=== PATIENT | male | born 1945 | race Caucasian/White ===

== ENCOUNTER 2016-08-14 07:16 | Inpatient (IN) | payer OTHER ==
--- NOTE | 2016-07-06 11:22 | PAT Medication Instructions ---
Service Date Jul 06, 2016. Current Home Medication List Amlodipine (Norvasc), 10 MG PO HS Aspirin Enteric Coated (Ecotrin Or Generic *), 81 MG PO QAM B-Complex W/ Folic Acid (Super B Complex Maxi), 1 TAB PO QAM Cholecalciferol (Vitamin D3), 5,000 INTERUNIT PO QAM Cyanocobalamin (Vitamin B-12 Unkown Dose), Unknown Dose PO QAM Losartan Potassium (Cozaar), 100 MG PO QAM Oxycodone Hcl (Oxycontin (Ext Rel) *), 10 MG PO Q12 Sildenafil Citrate (Viagra), 50 MG PO PRN Medication Instructions For Your Scheduled Surgery - Hold the following medications the morning of surgery: Losartan Potassium (Cozaar), 100 MG PO QAM Sildenafil Citrate (Viagra), 50 MG PO PRN Cyanocobalamin (Vitamin B-12 Unkown Dose), Unknown Dose PO QAM Cholecalciferol (Vitamin D3), 5,000 INTERUNIT PO QAM B-Complex W/ Folic Acid (Super B Complex Maxi), 1 TAB PO QAM - Take the following medications the morning of surgery with a sip of water: Oxycodone Hcl (Oxycontin (Ext Rel) *), 10 MG PO Q12 (okay to take up to 4 hours prior to surgery if needed) Aspirin Enteric Coated (Ecotrin Or Generic *), 81 MG PO QAM (okay to continue per surgeon) - Take the following medications as scheduled the night before surgery: Amlodipine (Norvasc), 10 MG PO HS Sildenafil Citrate (Viagra), 50 MG PO PRN Oxycodone Hcl (Oxycontin (Ext Rel) *), 10 MG PO Q12 If you have any questions please call us at [phone] (Erinn Hayden PA-C) or [phone] or [phone]
--- NOTE | 2016-07-06 11:54 | DIAGNOSTIC IMAGING REPORT ---
TWO VIEW CHEST CLINICAL HISTORY: Preoperative examination. FINDINGS: PA and lateral chest radiographs are obtained. No prior studies are available for comparison at the time of dictation. The cardiomediastinal silhouette is unremarkable. There is mild elevation of the right hemidiaphragm. The lungs and pleural spaces are clear. There is no pneumothorax. The skeletal structures are osteopenic. Degenerative change is seen throughout the thoracic spine. IMPRESSION: No active disease in the chest. Electronically signed by: Colby Suarez M.D. 07/06/2016 11:52 AM
[2016-07-06 12:17] LABS: BASO % 0.4 %; BASO ABS # 0.03 K/uL (0-0.2); COMPLETE YES; EOS % 3.2 %; HEMATOCRIT 37.2 % (42-52); IG% 0.3 %; LYMPH % 20.5 %; LYMPH ABS # 1.55 K/uL (1.2-3.4); MEAN CELL VOLUME 89.6 fL (80-100); MEAN CORPUSCULAR HEMOGLOBIN 31.3 pg (25-34); MEAN CORPUSCULAR HGB CONC 34.9 g/dl (32-36); MEAN PLATELET VOLUME 10.3 fL (7.4-10.4); MONO % 8.3 %; NEUT % 67.3 %; PLATELET COUNT 179 K/uL (130-400); RED BLOOD COUNT 4.15 M/uL (4.7-6.1); WHITE BLOOD COUNT 7.55 K/uL (4.8-10.8)
[2016-07-06 12:27] LABS: PARTIAL THROMBOPLASTIN RATIO 1.2; PROTHROMBIN TIME (PATIENT) 10.5 SECONDS (9.0-12.0)
[2016-07-06 12:30] LABS: URINE APPEARANCE CLOUDY (CLEAR); URINE BILIRUBIN NEG (NEG); URINE COLOR DK YELLOW; URINE NITRITE NEG (NEG); URINE SPECIFIC GRAVITY 1.033 (1.000-1.030); UROBILINOGEN NEG (NEG)
[2016-07-06 12:41] LABS: MANUAL MICROSCOPIC REQUIRED? NO; REVIEW REQ? NO
[2016-07-06 13:10] LABS: ESTIMATED AVERAGE GLUCOSE 114 mg/dl; HA1C FLAG Normal (Normal)
[2016-07-06 17:45] LABS: BUN/CREATININE RATIO 15.4 (10-20); CREATININE 1.3 mg/dl (0.60-1.40)
[2016-07-06 17:56] LABS: CALCIUM 8.9 mg/dl (8.5-10.1)
--- NOTE | 2016-07-25 10:52 | History and Physical ---
History & Physical PROCEDURE: Right knee replacement. DATE OF SURGERY: 08/14/16 HISTORY OF PRESENT ILLNESS: Inocencio is a pleasant 71-year-old male who presents for preoperative evaluation prior to a right knee replacement. He states he is having pain in this knee for several years now, which has gradually worsened. It has not gotten to the point it is affecting his daily activities including walking, standing, going up and down steps. He has tried previous oral anti-inflammatories including ibuprofen and Aleve, he has had previous cortisone injection and also viscosupplementation without much relief. At this point in time he has failed conservative measures and after discussing further care would like to proceed with a right knee replacement. PAST MEDICAL HISTORY: 1. Hypertension. 2. Sleep apnea. ALLERGIES: No known drug allergies. CURRENT MEDICATIONS: 1. Losartan 100 mg daily. 2. Vitamin D3. 3. Aspirin 81 mg daily. 4. Amlodipine 10 mg daily. 5. B complex vitamin. PAST SURGICAL HISTORY: Previous shoulder arthroscopy. FAMILY HISTORY: Noncontributory. SOCIAL HISTORY: The patient consumes 5 alcoholic beverages per week. Denies a history of smoking or tobacco use. REVIEW OF SYSTEMS: Otherwise negative. Please see HPI for pertinent positives. PHYSICAL EXAMINATION: GENERAL: Kristine 71-year-old male in no acute distress, alert and oriented x3. He is 65 inches tall, weighs 186 pounds, BMI 31. VITAL SIGNS: Blood pressure is 122/66. HEAD, EYES, EARS, NOSE, AND THROAT: Normocephalic, atraumatic. CARDIAC: Regular rate and rhythm. No murmurs or gallops appreciated. Resting pulse 76 beats per minute. LUNGS: Clear to auscultation without rales or wheeze bilaterally. ABDOMEN: Soft, nontender. Bowel sounds present. EXTREMITIES: Attention to his right lower extremity he is neurovascularly intact. Calves are soft and nontender. DP pulse +2. He has a varus alignment. He does have positive crepitation with motion, range of motion is 0/5/115. His knee is ligamentously stable. Tenderness present diffusely over the knee, greatest over the medial compartment. IMAGING: Reviewed of the right knee show findings consistent with degenerative joint disease including joint space narrowing, subchondral sclerosis and osteophyte formation noted. He has mild varus alignment. IMPRESSION: 1. Right knee degenerative joint disease. 2. Hypertension. PLAN: Further care discussed with patient. At this point in time, has failed conservative measures and would like to proceed with a right knee replacement. Will place on aspirin 81 mg p.o. b.i.d. for a month postop. He otherwise has no other questions or concerns.
[~2016-08-14] VITALS: Ht 165.1 cm; Wt 83.9 kg
[2016-08-14] VITALS (9 sets, daily range): BP systolic 109–160; BP diastolic 54–77; PULSE 57–68; TEMP 36.4–36.9; O2SAT 94–99; Ht 165.1 cm; Wt 83.9 kg
--- NOTE | 2016-08-14 07:12 | History & Physical Bridge Note ---
H&P Re-Evaluation Bridge Note: I have examined the patient, reviewed the History & Physical and in the interval since the performance of the History & Physical I have noted the following changes of clinical significance: No changes noted
[~2016-08-14 07:16] MED LIST: ACETAMINOPHEN 500 MG TAB PO SCH; AMLO-114 PO; ASPEC81 PO; B-CO-25 PO; BUPIVACAINE 0.5 % 5 MG/1 ML PF 10ML VIAL ONE; CHOL20007 PO; CeleBREX 200 MG CAP PO SCH; DEXAMETHASONE 4 MG TAB PO SCH; GABAPENTIN 300 MG CAP PO SCH; LACTATED RINGER'S 1000ML IV SCH; LACTATED RINGER'S 500 ML IV SCH; LOSA1TAB38 PO; METOCLOPRAMIDE HCL 10 MG TAB PO SCH; VGR50 PO; VTMB12UNK PO
[2016-08-14] MEDS ORDERED: LIDOCAINE HCL 2% 2 ML VIAL (20MG/ML) ONE ×2 (07:40→10:36)
[2016-08-14] MEDS ORDERED: ONDANSETRON INJ 2 MG/ML 2 ML VIAL ONE ×2 (07:40→10:36)
[2016-08-14] MEDS ORDERED: PROPOFOL IV EMULSION 10 MG/ML 20 ML VIAL IV ONE ×2 (07:40→10:36)
[2016-08-14] MEDS ORDERED: DEXAMETHASONE SOD INJ 4 MG/ML VIAL ONE ×2 (07:40→10:36)
[2016-08-14] MEDS ORDERED: MIDAZOLAM HCL 1 MG/ML 2ML VIAL ONE ×4 (07:41→10:36)
[2016-08-14] MEDS ORDERED: FENTANYL CITRATE INJ 50 MCG/1 ML 2 ML VIAL ONE ×2 (07:41→10:36)
[2016-08-14] MEDS ORDERED: ONDANSETRON INJ 2 MG/ML 2 ML VIAL IV PRN ×2 (09:00→11:15)
[2016-08-14] MEDS ORDERED: ORTHO JOINT ANESTHETIC ONE (09:00)
[2016-08-14] MEDS ORDERED: ATROPINE SULFATE 0.1 MG/ML 5ML SYR IV PRN (09:00)
[2016-08-14] MEDS ORDERED: EpHEDrine SULFATE INJ 50 MG/ML AMP IV PRN (09:00)
[2016-08-14] MEDS ORDERED: FENTANYL CITRATE INJ 50 MCG/1 ML 2 ML VIAL IV PRN (09:00)
[2016-08-14] MEDS: TRANEXAMIC ACID INJ 1,000 MG in SODIUM CHLORIDE 0.9% 100ML 100 ML IV SCH ×2 (09:16→12:55)
[2016-08-14] MEDS: CEFAZOLIN 2000 MG/60 ML D5W 60 ML IV SCH ×2 (09:30→12:56)
[2016-08-14] MEDS: ROPIVACAINE 5MG/ML 30 ML 150 MG, BUPIVACAINE/EPINEPHR 0.5% MPF 30 ML, KETOROLAC TROMETH... INFIL SCH ×21 (10:21→12:56)
[2016-08-14] MEDS ORDERED: BACITRACIN 50000 UNIT VIAL IR ONE (10:22)
--- NOTE | 2016-08-14 10:27 | [facility] Post Operative Brief Note ---
Immediate Operative Summary Operative Date Aug 14, 2016. Pre-Operative Diagnosis Right Knee Degenerative Joint Disease Post-Operative Diagnosis Right Knee Degenerative Joint Disease Procedure(s) Performed Right Total Knee Arthroplasty Surgeon Dr. Wayne Shaw Financial Health Counselor Surgeon(s) Rolly Loredo PA-C Estimated Blood Loss 5 ml Findings severe djd rt knee Specimens A. Right Knee Bone and Tissue Complication(s) None Disposition Recovery Room / PACU
[2016-08-14] MEDS ORDERED: POVIDONE-IODINE OP SOLN 30 ML BTL TOP ONE (10:28)
--- NOTE | 2016-08-14 10:50 | OPERATIVE REPORT ---
DATE OF OPERATION: 08/14/2016 PREOPERATIVE DIAGNOSIS: Severe end-stage tricompartmental degenerative joint disease, right knee. POSTOPERATIVE DIAGNOSIS: Same. PROCEDURE: Right total knee arthroplasty utilizing Gipson \T\ Nephew Journey II patient matched custom fit total knee arthroplasty size 6 femur, 5 tibia, 9 poly, 29 oval patella. SURGEON: Dr. Shaw. EXTENDER: Rolly Loredo PA-C, who was necessary for prepping, draping, retraction, wound closure of deep fascia, subQ and skin and was necessary for the case. ESTIMATED BLOOD LOSS: 5 mL. COMPLICATIONS: None. TOURNIQUET TIME: 45 minutes. HISTORY OF PRESENT ILLNESS: The patient presents as a very pleasant 71-year-old white male with complaints of severe end-stage DJD of the right knee who has been nonresponsive to conservative therapy including physical therapy, anti-inflammatories, relative rest, activity modifications, bracing as well as injections. The patient presents for total knee arthroplasty. OPERATION AND FINDINGS: PROCEDURE: The patient was properly prepped and draped in supine position for total knee arthroplasty after identifying the appropriate surgical site. An anterior midline incision was made through the subcutaneous tissues down to the region of the extensor mechanism. A medial parapatellar incision was subsequently made. Meticulous hemostasis was obtained and performed at all times. The patella having been subluxed lateralward, medial and lateral meniscal remnants were excised. The patellar cut was then initially made and was sized to the appropriate size. After subluxing the tibia forward the appropriate meniscal fragments having been removed the distal femur was then cut first utilizing a Gipson \T\ Nephew block. The distal femoral cuts and chamfer cuts were all made under direct visualization and the proximal tibial osteotomy cut was also made utilizing Gipson \T\ Nephew blocks and checked with an extramedullary guide. The appropriate trial components on the femur and tibia were placed. Appropriate trial spacers were used to check flexion and extension gaps. With flexion and extension gaps being equal, the components were then subsequently after thorough irrigation and debridement lavage components were then subsequently cemented in the following order: femur, tibia and patella. Exparel was used for intraoperative anesthesia, the medial parapatellar incision was closed utilizing #1 Vicryl, subQ was closed with 2-0 Vicryl, skin was closed with skin clips. A sterile compression dressing was placed. The patient was taken to recovery room in stable condition. Due to the complex nature of the procedure, the entire surgery was performed with the operational assistance of Rolly Loredo PA-C. The family readiness support assistant, under direct supervision, was involved in the actual performance of all aspects of the surgical procedure including hemostasis, tissue retraction and incision, instrument management, patient positioning, and wound closure. I attest to the content of the Intraoperative Record and any orders documented therein. Any exceptio ns are noted below.
[2016-08-14] MEDS ORDERED: SOD PHOSPHATE/SOD BIPHOSPHATE ENEMA 132 ML BTL PR PRN (11:15)
[2016-08-14] MEDS ORDERED: BISACODYL 10 MG SUPP PR PRN (11:15)
[2016-08-14] MEDS ORDERED: KETOROLAC TROMETHAMINE 30 MG/ML VIAL IV. PRN (11:15)
[2016-08-14] MEDS ORDERED: MAGNESIUM HYDROXIDE SUSP 30 ML UDC PO PRN (11:15)
[2016-08-14] MEDS ORDERED: ALUMINUM/MAGNESIUM/SIMETH (MAALOX MAX) 30 ML UDC PO PRN (11:15)
[2016-08-14] MEDS ORDERED: MoRPHine SULFATE 2 MG/ML CARP IV PRN (11:15)
--- NOTE | 2016-08-14 11:32 | DIAGNOSTIC IMAGING REPORT ---
RIGHT KNEE 2 VIEWS History: Right total knee arthroplasty. Degenerative arthritis. Postop. FINDINGS: The patient is status post a right total knee arthroplasty. The hardware is intact. No fracture or dislocation. Surgical drains are in place. IMPRESSION: Right total knee arthroplasty. No evidence for hardware complication. Electronically signed by: August Tenorio M.D. 08/14/2016 11:30 AM Dictated Date/Time: 08/14/2016 11:29 AM
--- NOTE | 2016-08-14 12:57 | Anesthesiology Progress Note ---
Anesthesia Post Op Note Date & Time Aug 14, 2016 at 12:57 Vital Signs Pain Intensity: 0.0 Vital Signs Past 12 Hours Date Time Temp Pulse Resp B/P Pulse Ox O2 Delivery O2 Flow Rate FiO2 08/14/16 12:30 98 Nasal Cannula 2.0 08/14/16 12:30 36.7 18 114/69 98 Nasal Cannula 2.0 08/14/16 12:30 Nasal Cannula 2.0 08/14/16 12:15 55 18 115/62 98 Nasal Cannula 2 08/14/16 12:00 36.2 57 22 124/76 98 Nasal Cannula 2 08/14/16 11:45 56 18 117/62 97 Nasal Cannula 2 08/14/16 11:40 60 18 115/62 97 Nasal Cannula 2 08/14/16 11:30 36.2 60 16 117/62 97 Nasal Cannula 2 08/14/16 11:20 67 18 121/68 97 Nasal Cannula 2 08/14/16 11:10 36.3 77 16 137/65 95 Nasal Cannula 2 08/14/16 07:58 36.7 68 18 160/77 97 Room Air Notes Mental Status: alert / awake / arousable, participated in evaluation Pt Amnestic to Procedure: Yes Nausea / Vomiting: adequately controlled Pain: adequately controlled Airway Patency, RR, SpO2: stable & adequate BP & HR: stable & adequate Hydration State: stable & adequate Neuraxial Anesthesia: was administered, sensory block is resolving Anesthetic Complications: no major complications apparent
[2016-08-14] MEDS ORDERED: MoRPHine SULFATE 10 MG/ML CARP/VIAL IV PRN (13:15)
[2016-08-14] MEDS ORDERED: MoRPHine SULFATE 4 MG/ML 1 ML CARP\\VIAL IV PRN (13:15)
[2016-08-14] MEDS: D5W AND 1/2NSS + 20MEQ KCL 1,000 ML IV SCH ×2 (13:47→23:25)
[2016-08-14] MEDS: ACETAMINOPHEN 500 MG TAB PO SCH ×2 (14:17→21:42)
[2016-08-14] MEDS: FERROUS GLUCONATE 324 MG TAB PO SCH (18:39)
[2016-08-14] MEDS: CEFAZOLIN IV 2,000 MG in DEXTROSE 5% 50ML 50 ML IV SCH (18:40)
[2016-08-14] MEDS: SENNA 8.6 MG TAB PO SCH (20:43)
[2016-08-14] MEDS: AMLODIPINE BESYLATE 5 MG TAB PO SCH (20:43)
[2016-08-14] MEDS: DOCUSATE SODIUM 100 MG CAP PO SCH (20:44)
[2016-08-14] MEDS: ASPIRIN 81 MG ECTAB PO SCH (20:44)
[2016-08-14] MEDS: OXYCODONE HCL 10 MG TABCR (OXYCONTIN) PO SCH (20:45)
[2016-08-14] MEDS ORDERED: CeleBREX 200 MG CAP PO SCH (21:00)
[2016-08-15] VITALS (9 sets, daily range): BP systolic 113–150; BP diastolic 62–71; PULSE 59–110; TEMP 36.4–36.7; O2SAT 95–98
[2016-08-15] MEDS: CEFAZOLIN IV 2,000 MG in DEXTROSE 5% 50ML 50 ML IV SCH (02:07)
[2016-08-15] MEDS: ACETAMINOPHEN 500 MG TAB PO SCH ×3 (05:41→21:30)
[2016-08-15 05:55] LABS: HEMATOCRIT 31.5 % (42-52); MEAN CELL VOLUME 86.8 fL (80-100); MEAN CORPUSCULAR HEMOGLOBIN 30.9 pg (25-34); MEAN CORPUSCULAR HGB CONC 35.6 g/dl (32-36); MEAN PLATELET VOLUME 10.7 fL (7.4-10.4); PLATELET COUNT 147 K/uL (130-400); RED BLOOD COUNT 3.63 M/uL (4.7-6.1)
[2016-08-15 06:07] LABS: PROTHROMBIN TIME (PATIENT) 10.5 SECONDS (9.0-12.0)
[2016-08-15 06:22] LABS: BUN/CREATININE RATIO 14.9 (10-20); CALCIUM 8.6 mg/dl (8.5-10.1)
--- NOTE | 2016-08-15 07:14 | Orthopedic Progress Note ---
Orthopedic Progress Note Date of Service Aug 15, 2016. Subjective Post OP Day: 1 (Right TKA) Reports: feeling well, pain controlled w PO medications, Denies: SOB, calf pain , chest pain, complaints, light headedness, nausea / vomiting Objective calves soft nontender, N/V intact, capillary refill less than 2 sec., dressing C /D/I, A&O x3, toes mobile, hemovac drainage (300cc/8 hours) Date Time Temp Pulse Resp B/P Pulse Ox O2 Delivery O2 Flow Rate FiO2 08/15/16 04:00 36.6 67 18 133/64 96 Room Air 08/14/16 23:25 Room Air 08/14/16 22:55 36.9 59 18 110/54 97 Room Air 08/14/16 19:42 36.6 65 16 125/69 94 Room Air 08/14/16 15:33 36.5 57 18 109/64 96 Room Air 08/14/16 15:15 Room Air 08/14/16 14:33 36.6 62 20 117/70 96 Nasal Cannula 1.0 08/14/16 14:30 36.4 63 18 115/68 96 Room Air 08/14/16 13:31 36.5 59 20 128/76 99 Nasal Cannula 08/14/16 13:01 36.5 57 18 123/75 98 Nasal Cannula 2.0 08/14/16 12:30 98 Nasal Cannula 2.0 08/14/16 12:30 36.7 18 114/69 98 Nasal Cannula 2.0 08/14/16 12:30 Nasal Cannula 2.0 08/14/16 12:15 55 18 115/62 98 Nasal Cannula 2 08/14/16 12:00 36.2 57 22 124/76 98 Nasal Cannula 2 08/14/16 11:45 56 18 117/62 97 Nasal Cannula 2 08/14/16 11:40 60 18 115/62 97 Nasal Cannula 2 08/14/16 11:30 36.2 60 16 117/62 97 Nasal Cannula 2 08/14/16 11:20 67 18 121/68 97 Nasal Cannula 2 08/14/16 11:10 36.3 77 16 137/65 95 Nasal Cannula 2 08/14/16 07:58 36.7 68 18 160/77 97 Room Air Laboratory Results 24 Hours: Test 08/15/16 05:05 Hematocrit 31.5 % Hemoglobin 11.2 g/dL Prothromb Time International Ratio 1.0 Prothrombin Time 10.5 SECONDS Assessment & Plan Assessment: POD #1 s/p Right TKA -PT/OT -dvt proph with BONNY/SCD/ASA -plan for d/c home with HHPT when stable -prinea dressing HTN Sleep Apnea Discharge Planning Discharge Planning: home with home health DVT Prophylaxis: TEDs, SCDs, ASA Therapy: Physical Therapy
[2016-08-15] MEDS: MULTIVITAMIN TAB PO SCH (08:55)
[2016-08-15] MEDS: VITAMIN B COMPLEX TAB PO SCH (08:55)
[2016-08-15] MEDS: FERROUS GLUCONATE 324 MG TAB PO SCH ×3 (08:55→18:17)
[2016-08-15] MEDS: PANTOprazole SOD 40 MG TAB PO SCH (08:56)
[2016-08-15] MEDS: DOCUSATE SODIUM 100 MG CAP PO SCH ×2 (08:56→21:28)
[2016-08-15] MEDS: ASPIRIN 81 MG ECTAB PO SCH ×2 (08:56→21:28)
[2016-08-15] MEDS: CHOLECALCIFEROL 1000 INTER.UNIT TAB PO SCH (08:56)
[2016-08-15] MEDS: D5W AND 1/2NSS + 20MEQ KCL 1,000 ML IV SCH (08:57)
[2016-08-15] MEDS: LOSARTAN POTASSIUM 50 MG TAB PO SCH (08:57)
[2016-08-15] MEDS: OXYCODONE HCL 10 MG TABCR (OXYCONTIN) PO SCH ×2 (08:59→21:26)
[2016-08-15] MEDS: OXYCODONE HCL IR 5 MG TAB (IMMEDIATE RELEASE) PO PRN ×2 (09:52→18:20)
--- NOTE | 2016-08-15 13:07 | Discharge Instructions ---
Discharge Instructions Admission Reason for Admission: Right Knee Osteoarthritis Discharge Discharge Diagnosis / Problem: Right Total Knee Replacement Discharge Goals Goal(s): Decrease discomfort, Improve function, Increase independence Activity Recommendations Activity Limitations: as noted below Weightbearing Status: Right weightbearing (as tolerated) . Instructions / Follow-Up Instructions / Follow-Up ACTIVITY RECOMMENDATIONS: SELF CARE INSTRUCTIONS AFTER TOTAL KNEE REPLACEMENT A. You may need to continue a physical therapy program after discharge from the hospital. There are several options available to you. Your doctor will assist you in selecting the best one for you. 1. An out-patient facility 2 to 3 times a week for therapy or home therapy. 2. Continue working on all exercises taught to you in the hospital. Your goals should be to increase bending of your knee to 90 degrees and beyond and to fully straighten your knee. B. You may progress at your own pace from walking with a walker or crutches to a cane; then to no assistive devices. C. Make walking a part of your daily routine. Be up as much as comfortable with rest periods throughout the day. Rest with leg elevation is very important. Use the ice wrap frequently for the first 3-4 weeks. D. There are no restrictions on activities. You may ride in a car, shop, participate in data collection specialist and all social activities. E. Wear the long elastic stockings (BONNY hose) 20 hours a day for 2 weeks after surgery. They can be removed several times a day for laundering and for a bath. F. You may shower, no tub baths until cleared by your doctor. SPECIAL CARE INSTRUCTIONS: VERY IMPORTANT TO READ AND REVIEW A. There are a few signs you need to watch for after you are home. Call [facility] if you notice any of the followin. Increased severe knee pain. Some pain is expected especially when you exercise. 2. Increased swelling in your leg or knee; pain or swelling of the calf muscle in either lower leg. 3. Any fluid drainage from the incision. 4. Shortness of breath or chest pain. B. Please call [facility] at if you have any concerns or questions about your operation or recovery. The doctor or his nurse will return your call promptly. C. You must take antibiotics before dental work, bladder, bowel or other surgery. Your doctor will provide you with a permanent care to carry describing this precaution. IMPORTANT: * REMEMBER TO TAKE ASPIRIN, 81 MG, TWICE DAILY FOR 4 WEEKS UNLESS OTHERWISE DIRECTED. THIS IS YOUR BLOOD THINNER. * HIGH RISK PATIENTS MAY BE PRESCRIBED A STRONGER BLOOD THINNER. THIS WILL BE PROVIDED AT DISCHARGE. * CALL IF INCREASED PAIN, REDNESS, DRAINAGE OR FEVER GREATER THAT 101. * WEAR BONNY HOSE 20 HOURS PER DAY FOR 2 WEEKS. * DERMABOND Prineo- This is a mesh tape dressing that is covered with glue. It should remain in place until the incision is properly healed, usually 10-14 days. This dressing is designed to naturally slough off. You may trim the excess mesh tape as it peels off. Incision may be briefly wet in a shower. Dry immediately by blotting with a clean, dry towel. Do not bath or swim until instructed by your doctor. Do not scratch, rub, or pick at the dressing. Do not apply any topical ointments or lotions until dressing is completely removed and/or instructed by your doctor. There may be a small piece of suture material at one end of your incision. Do not pull or trim this. If it is bothersome or catching on clothing, you may cover it with a band-aid. FOLLOW UP VISIT: If appointment is not already scheduled: Please call [facility] to make a follow-up appointment for 2 weeks after your surgery at . Current Hospital Diet Patient's current hospital diet: Regular Diet Discharge Diet Recommended Diet: Regular Diet Procedures Procedures Performed: Right Total Knee Arthroplasty Pending Studies Studies pending at discharge: no Laboratory Results Hemoglobin A1c Test 07/06/16 11:28 Range/Units Estimated Average Glucose 114 mg/dl Hemoglobin A1c 5.6 4.5-5.6 % Medical Emergencies . Who to Call and When: Medical Emergencies: If at any time you feel your situation is an emergency, please call 911 immediately. . Non-Emergent Contact Non-Emergency issues call your: Primary Care Provider, Surgeon . "Provider Documentation" section prepared by Rolly Loredo. VTE Core Measure Inpt VTE Proph given/why not?: Other Anticoagulation (ASA 81mg po bid x 1 month ), T.E.D. Stockings, SCD's
[2016-08-15] MEDS: SENNA 8.6 MG TAB PO SCH (21:27)
[2016-08-15] MEDS: CeleBREX 200 MG CAP PO SCH (21:28)
[2016-08-15] MEDS: AMLODIPINE BESYLATE 5 MG TAB PO SCH (21:29)
[2016-08-16] MEDS: ACETAMINOPHEN 500 MG TAB PO SCH (05:28)
--- NOTE | 2016-08-16 06:52 | Orthopedic Progress Note ---
Orthopedic Progress Note Date of Service Aug 16, 2016. Subjective Post OP Day: 2 Reports: feeling well, pain controlled w PO medications, Denies: SOB, calf pain , chest pain, complaints, light headedness, nausea / vomiting Objective calves soft nontender, N/V intact, capillary refill less than 2 sec., incision C /D/I, A&O x3, toes mobile Date Time Temp Pulse Resp B/P Pulse Ox O2 Delivery O2 Flow Rate FiO2 08/15/16 22:55 36.7 64 18 113/62 96 Room Air 08/15/16 21:31 150/69 08/15/16 19:25 Room Air 08/15/16 15:59 Room Air 08/15/16 15:08 36.4 59 18 127/63 96 Room Air 08/15/16 12:10 36.6 72 18 115/65 97 Room Air 08/15/16 10:59 61 98 08/15/16 08:14 96 Room Air 08/15/16 08:08 Room Air 08/15/16 07:58 36.4 72 16 132/71 96 Room Air Assessment & Plan Assessment: POD #2 s/p Right TKA -PT/OT -dvt proph with BONNY/SCD/ASA -plan for d/c home with HHPT when stable, likely after PT this am -prinea dressing HTN Sleep Apnea Discharge Planning Discharge Planning: home with home health DVT Prophylaxis: TEDs, SCDs, ASA Therapy: Physical Therapy
[2016-08-16 07:05] VITALS: BP 121/68; PULSE 59; TEMP 36.7; O2SAT 95
[2016-08-16] MEDS ORDERED: RXC5 PO (07:18)
[2016-08-16] MEDS ORDERED: CLC100 PO (07:18)
[2016-08-16] MEDS ORDERED: ASPEC81 PO (07:18)
[2016-08-16] MEDS ORDERED: ACET-1138 PO (07:18)
[2016-08-16] MEDS ORDERED: OXYSR10 PO (07:18)
[2016-08-16] MEDS ORDERED: CLB200 PO (07:18)
[2016-08-16] MEDS ORDERED: ONDA8TAB6 PO (07:19)
--- NOTE | 2016-08-16 07:21 | Discharge Summary ---
Orthopedic Discharge Summary Admission Date/Reason Aug 14, 2016 at 08:00 Right Knee Osteoarthritis. Discharge Date/Disposition Aug 16, 2016 Home with services Diagnosis Principal Diagnosis: Right Total Knee Replacement Procedure(s) Performed Right TKA Consultations NONE Medication Reconciliation New Medications: Ondansetron Hcl (Zofran) 8 Mg Tab 8 MG PO Q8 PRN for Nausea, #20 TAB Acetaminophen (Tylenol Extra Strength) 500 Mg Tab 1000 MG PO Q8H, #126 TAB Aspirin (Aspirin EC Low Dose) 81 Mg Ectab 81 MG PO BID for 30 Days Celecoxib (Celebrex) 200 Mg Cap 200 MG PO BID, #60 CAP Docusate Sodium (Docusate Sodium) 100 Mg Cap 100 MG PO BID for 15 Days, #30 CAP Oxycodone HCl (Oxycontin) 10 Mg Tabcr 10 MG PO Q12, #20 Oxycodone HCl (Oxycodone HCl) 5 Mg Tab 5-10 MG PO Q4H PRN for Pain, #60 TAB Continued Medications: Amlodipine (Norvasc) 10 Mg Tab 10 MG PO HS, TAB B-Complex W/ Folic Acid (Super B Complex Maxi) 1 Tab Tab 1 TAB PO QAM Cholecalciferol (Vitamin D3) 2,000 Unit Tab 5000 INTERUNIT PO QAM, TAB PATIENT REPORTS D 3 IS A 5000 DOSE - UNSURE IF IT IS IN IU Cyanocobalamin (Vitamin B-12 Unkown Dose) Unknown Strength Tab Unknown Dose PO QAM Losartan Potassium (Cozaar) 100 Mg Tab 100 MG PO QAM, TAB Sildenafil Citrate (Viagra) 50 Mg Tab 50 MG PO PRN, 0 Refills Discontinued Medications: Aspirin Enteric Coated (Ecotrin Or Generic *) 81 Mg Ectab 81 MG PO QAM, 0 Refills Admission Physical Exam As per Admitting History & Physical. Hospital Course Patient was a same day admission after undergoing a successful right TKA. he tolerated the procedure well. Post-operatively, his activity was progressed and well tolerated. Please refer to daily progress notes and PT notes for complete details. After exam on 08/16/16, patient felt to be stable for discharge home with HHPT. Patient will f/u in the office in 2 weeks for further evaluation including x-rays and incision check, sooner if having any issues or concerns. Below are pertinent labs/studies during their hospital stay: Last Vital Signs Documentation Date Time Temp Pulse Resp B/P Pulse Ox O2 Delivery O2 Flow Rate FiO2 08/16/16 07:05 36.7 59 16 121/68 95 Room Air 08/14/16 14:33 1.0 Last Resulted CBC 08/15/16 05:05 Last Resulted BMP 08/15/16 05:05 Discharge Instructions ACTIVITY RECOMMENDATIONS: SELF CARE INSTRUCTIONS AFTER TOTAL KNEE REPLACEMENT A. You may need to continue a physical therapy program after discharge from the hospital. There are several options available to you. Your doctor will assist you in selecting the best one for you. 1. An out-patient facility 2 to 3 times a week for therapy or home therapy. 2. Continue working on all exercises taught to you in the hospital. Your goals should be to increase bending of your knee to 90 degrees and beyond and to fully straighten your knee. B. You may progress at your own pace from walking with a walker or crutches to a cane; then to no assistive devices. C. Make walking a part of your daily routine. Be up as much as comfortable with rest periods throughout the day. Rest with leg elevation is very important. Use the ice wrap frequently for the first 3-4 weeks. D. There are no restrictions on activities. You may ride in a car, shop, participate in sales performance manager and all social activities. E. Wear the long elastic stockings (BONNY hose) 20 hours a day for 2 weeks after surgery. They can be removed several times a day for laundering and for a bath. F. You may shower, no tub baths until cleared by your doctor. SPECIAL CARE INSTRUCTIONS: VERY IMPORTANT TO READ AND REVIEW A. There are a few signs you need to watch for after you are home. Call [facility] if you notice any of the followin. Increased severe knee pain. Some pain is expected especially when you exercise. 2. Increased swelling in your leg or knee; pain or swelling of the calf muscle in either lower leg. 3. Any fluid drainage from the incision. 4. Shortness of breath or chest pain. B. Please call [facility] at if you have any concerns or questions about your operation or recovery. The doctor or his nurse will return your call promptly. C. You must take antibiotics before dental work, bladder, bowel or other surgery. Your doctor will provide you with a permanent care to carry describing this precaution. IMPORTANT: * REMEMBER TO TAKE ASPIRIN, 81 MG, TWICE DAILY FOR 4 WEEKS UNLESS OTHERWISE DIRECTED. THIS IS YOUR BLOOD THINNER. * HIGH RISK PATIENTS MAY BE PRESCRIBED A STRONGER BLOOD THINNER. THIS WILL BE PROVIDED AT DISCHARGE. * CALL IF INCREASED PAIN, REDNESS, DRAINAGE OR FEVER GREATER THAT 101. * WEAR BONNY HOSE 20 HOURS PER DAY FOR 2 WEEKS. * DERMABOND Prineo- This is a mesh tape dressing that is covered with glue. It should remain in place until the incision is properly healed, usually 10-14 days. This dressing is designed to naturally slough off. You may trim the excess mesh tape as it peels off. Incision may be briefly wet in a shower. Dry immediately by blotting with a clean, dry towel. Do not bath or swim until instructed by your doctor. Do not scratch, rub, or pick at the dressing. Do not apply any topical ointments or lotions until dressing is completely removed and/or instructed by your doctor. There may be a small piece of suture material at one end of your incision. Do not pull or trim this. If it is bothersome or catching on clothing, you may cover it with a band-aid. FOLLOW UP VISIT: If appointment is not already scheduled: Please call [facility] to make a follow-up appointment for 2 weeks after your surgery at .
[2016-08-16] MEDS: DOCUSATE SODIUM 100 MG CAP PO SCH (08:42)
[2016-08-16] MEDS: ASPIRIN 81 MG ECTAB PO SCH (08:42)
[2016-08-16] MEDS: OXYCODONE HCL 10 MG TABCR (OXYCONTIN) PO SCH (08:42)
[2016-08-16] MEDS: VITAMIN B COMPLEX TAB PO SCH (08:43)
[2016-08-16] MEDS: LOSARTAN POTASSIUM 50 MG TAB PO SCH (08:43)
[2016-08-16] MEDS: CeleBREX 200 MG CAP PO SCH (08:43)
[2016-08-16] MEDS: MULTIVITAMIN TAB PO SCH (08:43)
[2016-08-16] MEDS: CHOLECALCIFEROL 1000 INTER.UNIT TAB PO SCH (08:44)
[2016-08-16] MEDS: PANTOprazole SOD 40 MG TAB PO SCH (08:44)
[2016-08-16] MEDS: FERROUS GLUCONATE 324 MG TAB PO SCH ×2 (08:44→13:29)
[2016-08-16] MEDS: OXYCODONE HCL IR 5 MG TAB (IMMEDIATE RELEASE) PO PRN ×2 (08:45→13:29)
[2016-08-16 10:14] VITALS: BP 121/68; PULSE 59; TEMP 36.7; O2SAT 95
== END 2016-08-16 13:39 | disposition home health service (06) | DRG 470 ==
LOC: ENRESERVTM → ENRESERVDT → C.ACU 07:16 → C.3E 08:00
PROVIDERS: ADMIT Orthopaedic Surgery; ATTEND Orthopaedic Surgery
PROC: 0SRC0J9 Replacement of Right Knee Joint with Synthetic Substitute, Cemented, Open Approach (ICD-10-PCS; principal; 2016-08-14 09:30)
DX: M17.11 Unilateral primary osteoarthritis, right knee (principal); M21.161 Varus deformity, not elsewhere classified, right knee; I10 Essential (primary) hypertension; G47.30 Sleep apnea, unspecified; E66.9 Obesity, unspecified; Z68.30 Body mass index [BMI] 30.0-30.9, adult; Z87.891 Personal history of nicotine dependence; Z99.89 Dependence on other enabling machines and devices; Z79.82 Long term (current) use of aspirin; Z79.891 Long term (current) use of opiate analgesic; Z79.899 Other long term (current) drug therapy